=== PATIENT | male | born 1950 | race Two or more races ===

== ENCOUNTER 2017-08-15 04:36 | Emergency (ER) | payer OTHER ==
[~2017-08-15] VITALS: Ht 185.4 cm; Wt 102.5 kg
[2017-08-15] MEDS ORDERED: Oxymetazoline 0.05% Na Spray 30ml NASAL ONE (04:47)
[2017-08-15 04:50] VITALS: BP 163/96
[2017-08-15 05:13] LABS: BASOPHILS % (AUTO) 0.5 % (0.0-2.0); EOSINOPHILS % (AUTO) 3.4 % (0.0-3.0); HEMATOCRIT 34.9 % (42.0-52.0); HEMOGLOBIN 11.7 G/DL (14.2-18.0); LYMPHOCYTES % (AUTO) 30.8 % (20.0-45.0); MEAN CORPUSCULAR VOLUME 86 FL (80-99); MONOCYTES % (AUTO) 5.7 % (1.0-10.0); NEUTROPHILS % (AUTO) 59.6 % (45.0-75.0); PLATELET COUNT 352 K/UL (150-450); RED BLOOD COUNT 4.05 M/UL (4.70-6.10); RED CELL DISTRIBUTION WIDTH 11.7 % (11.6-14.8); WHITE BLOOD COUNT 5.7 K/UL (4.8-10.8)
[2017-08-15 05:24] LABS: ANION GAP 7 mmol/L (5-15); BLOOD UREA NITROGEN 15 mg/dL (7-18); CALCIUM 8.9 MG/DL (8.5-10.1); CARBON DIOXIDE 30 MMOL/L (21-32); CHLORIDE 103 MMOL/L (98-107); CREATININE 1.1 MG/DL (0.55-1.30); POTASSIUM 3.5 MMOL/L (3.5-5.1); SODIUM 140 MMOL/L (136-145)
--- NOTE | 2017-08-15 05:25 | Emergency Room Report ---
History of Present Illness General Chief Complaint: Nosebleed Source: Patient, EMS Present Illness HPI Patient is a 66-year-old male who presented after increased right-sided nasal bleeding the patient recently had similar symptoms on the opposite side. Patient had recent increased cough. He reports taking aspirin daily. He was having prior history of diabetes and high blood pressure. Patient reported having moderate bleeding. He reports several episodes in the last 2 weeks Allergies: Coded Allergies: No Known Allergies (Unverified , 08/15/17) Patient History Past Medical History: see triage record Reviewed Nursing Documentation: PMH: Agreed, PSxH: Agreed Nursing Documentation-PMH Hx Hypertension: Yes Hx Diabetes: Yes Review of Systems All Other Systems: negative except mentioned in HPI Physical Exam Vital Signs Date Time Temp Pulse Resp B/P (MAP) Pulse Ox O2 Delivery O2 Flow Rate FiO2 08/15/17 04:34 97.7 65 18 163/96 98 Room Air Sp02 EP Interpretation: reviewed, normal General Appearance: normal inspection, well appearing, no apparent distress, alert, GCS 15 Head: atraumatic ENT: normal ENT inspection, hearing grossly normal, normal voice, other - right nare large blood clot, mild anterior bleeding noted Neck: normal inspection, full range of motion, supple, no bony tend Respiratory: normal inspection, lungs clear, normal breath sounds, no respiratory distress, no retraction, no wheezing Cardiovascular #1: regular rate, rhythm, no edema Gastrointestinal: normal inspection, normal bowel sounds, non tender, soft, no guarding, no hernia Genitourinary: no CVA tenderness Musculoskeletal: normal inspection, back normal, normal range of motion Neurologic: normal inspection, alert, responsive, speech normal Psychiatric: normal inspection, judgement/insight normal, mood/affect normal Skin: normal inspection, normal color, no rash Medical Decision Making Diagnostic Impression: Primary Impression: Epistaxis ER Course Patient presented for nosebleed. Differential diagnoses included was not limited to anterior epistaxis, posterior epistaxis, coagulopathy, anemia among others.Because of complexity of patient's case laboratory testing and imaging studies were ordered. The patient was noted to have adequate hemoglobin. A Rhino Rocket was placed in the right near and oxymetazoline spray was instilled. The patient was noted to have a scheduled appointment with ENT. The patient is advised to follow up with primary care doctor in 1-2 days. Patient is advised to return if any worsening condition or if any changes in status that are concerning. This report is dictated with [employer] diesel mechanic farm software which may occasionally lead to discrepancies related to use of this software. Labs Test 08/15/17 05:00 White Blood Count 5.7 K/UL (4.8-10.8) Red Blood Count 4.05 M/UL (4.70-6.10) Hemoglobin 11.7 G/DL (14.2-18.0) Hematocrit 34.9 % (42.0-52.0) Mean Corpuscular Volume 86 FL (80-99) Mean Corpuscular Hemoglobin 28.9 PG (27.0-31.0) Mean Corpuscular Hemoglobin Concent 33.5 G/DL (32.0-36.0) Red Cell Distribution Width 11.7 % (11.6-14.8) Platelet Count 352 K/UL (150-450) Mean Platelet Volume 6.2 FL (6.5-10.1) Neutrophils (%) (Auto) 59.6 % (45.0-75.0) Lymphocytes (%) (Auto) 30.8 % (20.0-45.0) Monocytes (%) (Auto) 5.7 % (1.0-10.0) Eosinophils (%) (Auto) 3.4 % (0.0-3.0) Basophils (%) (Auto) 0.5 % (0.0-2.0) Prothrombin Time 9.3 SEC (9.30-11.50) Prothromb Time International Ratio 0.9 (0.9-1.1) Activated Partial Thromboplast Time 24 SEC (23-33) Sodium Level 140 MMOL/L (136-145) Potassium Level 3.5 MMOL/L (3.5-5.1) Chloride Level 103 MMOL/L (98-107) Carbon Dioxide Level 30 MMOL/L (21-32) Anion Gap 7 mmol/L (5-15) Blood Urea Nitrogen 15 mg/dL (7-18) Creatinine 1.1 MG/DL (0.55-1.30) Estimat Glomerular Filtration Rate > 60 mL/min (>60) Glucose Level 218 MG/DL (74-106) Calcium Level 8.9 MG/DL (8.5-10.1) Total Bilirubin 0.4 MG/DL (0.2-1.0) Aspartate Amino Transf (AST/SGOT) 18 U/L (15-37) Alanine Aminotransferase (ALT/SGPT) 22 U/L (12-78) Alkaline Phosphatase 142 U/L (46-116) Total Protein 8.0 G/DL (6.4-8.2) Albumin 3.7 G/DL (3.4-5.0) Globulin 4.3 g/dL Albumin/Globulin Ratio 0.9 (1.0-2.7) Last Vital Signs Date Time Temp Pulse Resp B/P (MAP) Pulse Ox O2 Delivery O2 Flow Rate FiO2 08/15/17 04:50 97.7 65 18 163/96 98 Room Air Status: improved Disposition: HOME, SELF-CARE Condition: Stable Referrals: [facility] (PCP) Ric Diaz Aug 15, 2017 05:25
[2017-08-15 05:27] LABS: INR 0.9 (0.9-1.1)
[2017-08-15 05:29] LABS: ALANINE AMINOTRANSFERASE 22 U/L (12-78); ALBUMIN 3.7 G/DL (3.4-5.0); ALBUMIN/GLOBULIN RATIO 0.9 (1.0-2.7); ALKALINE PHOSPHATASE 142 U/L (46-116); ASPARTATE AMINO TRANSFERASE 18 U/L (15-37); BILIRUBIN,TOTAL 0.4 MG/DL (0.2-1.0)
[2017-08-15] MEDS ORDERED: Sodium Chloride 500ML 250 ML IV ONE (05:30)
[2017-08-15 05:55] VITALS: BP 136/87
[2017-08-15 05:57] VITALS: BP 136/87
[2017-08-16] MEDS ORDERED: METFORMIN HCL500 M1 ORAL (11:21)
[2017-08-16] MEDS ORDERED: METOPROLOL TART25 MG ORAL (11:21)
[2017-08-16] MEDS ORDERED: LOSARTAN POTASS25 MG ORAL (11:23)
[2017-08-16] MEDS ORDERED: AFEDITAB CR30 MG ORAL (11:23)
== END 2017-08-15 05:59 | disposition home or self-care (01) ==
LOC: EDBD 04:36 → EMR 05:03
DX: R04.0 Epistaxis (principal); E11.9 Type 2 diabetes mellitus without complications; I10 Essential (primary) hypertension
CPT/HCPCS: 36415; 80053; 85025; 85610; 85730; 86850; 86900; 86901; 96360; 99284; J7040

== ENCOUNTER 2017-08-16 11:01 | Emergency (ER) | payer OTHER ==
[~2017-08-16] VITALS: Ht 185.4 cm; Wt 102.5 kg
[2017-08-16] MEDS ORDERED: METFORMIN HCL500 M1 ORAL (11:21)
[2017-08-16] MEDS ORDERED: METOPROLOL TART25 MG ORAL (11:21)
[2017-08-16] MEDS ORDERED: LOSARTAN POTASS25 MG ORAL (11:23)
[2017-08-16] MEDS ORDERED: AFEDITAB CR30 MG ORAL (11:23)
[2017-08-16 12:00] VITALS: BP 156/70
[2017-08-16] MEDS ORDERED: Silver Nitrate Stick TOPIC ONE (12:00)
--- NOTE | 2017-08-16 13:18 | Emergency Room Report ---
History of Present Illness General Chief Complaint: General Complaint Source: Patient Present Illness HPI patient is a 66-year-old male who presented after having recent nasal packing. The patient return for removal of packing. The patient denied any bleeding. Patient not been vomiting or having any fever.He denied feeling weak or dizzy Allergies: Coded Allergies: No Known Allergies (Unverified , 08/15/17) Patient History Past Medical History: see triage record Reviewed Nursing Documentation: PMH: Agreed, PSxH: Agreed Nursing Documentation-PMH Past Medical History: No History, Except For Hx Hypertension: Yes Hx Diabetes: Yes Review of Systems All Other Systems: negative except mentioned in HPI Physical Exam Vital Signs Date Time Temp Pulse Resp B/P (MAP) Pulse Ox O2 Delivery O2 Flow Rate FiO2 08/16/17 11:17 98.1 62 18 171/79 97 Room Air General Appearance: well appearing, no apparent distress, alert, GCS 15 Head: normocephalic, atraumatic ENT: hearing grossly normal, normal voice, other - nasal packing in right nare. Neck: full range of motion, supple Respiratory: no respiratory distress, speaking full sentences Musculoskeletal: no calf tenderness Neurologic: normal gait Psychiatric: mood/affect normal Skin: no rash Medical Decision Making Diagnostic Impression: Primary Impression: Encounter for removal of nasal packing ER Course The patient presented for nasal packing removal. Differential diagnosis included was not limited to recurrent bleeding, coagulopathy among others. Patient has a benign exam and does not appear to require any further imaging or laboratory testing at this time. The packing was removed. The patient minimal nasal bleeding after packing was removed and will resolve with direct pressure Last Vital Signs Date Time Temp Pulse Resp B/P (MAP) Pulse Ox O2 Delivery O2 Flow Rate FiO2 08/16/17 12:00 98.2 75 17 156/70 100 Room Air Status: improved Disposition: HOME, SELF-CARE Condition: Stable Referrals: NOT CHOSEN [facility],REFERRING Patient Instructions: Ric Hayward Aug 16, 2017 13:18
== END 2017-08-16 12:00 | disposition home or self-care (01) ==
LOC: EMR 11:48
DX: Z48.00 Encounter for change or removal of nonsurgical wound dressing (principal); E11.9 Type 2 diabetes mellitus without complications; I10 Essential (primary) hypertension
CPT/HCPCS: 99282

== ENCOUNTER 2017-08-22 23:54 | Emergency (ER) | payer OTHER ==
[~2017-08-22] VITALS: Ht 185.4 cm; Wt 103.4 kg
[~2017-08-22 23:54] MED LIST: AFEDITAB CR30 MG ORAL; LOSARTAN POTASS25 MG ORAL; METFORMIN HCL500 M1 ORAL; METOPROLOL TART25 MG ORAL
[2017-08-23 00:13] VITALS: BP 172/84
[2017-08-23] MEDS ORDERED: DETROL2 MG ORAL (00:16)
[2017-08-23] MEDS ORDERED: LOSARTAN POTASS50 MG ORAL (00:16)
[2017-08-23] MEDS ORDERED: ASPIRIN81 MG ORAL (00:16)
[2017-08-23] MEDS ORDERED: TAMSULOSIN HCL0.4 MG ORAL (00:16)
[2017-08-23] MEDS ORDERED: TRAZODONE HCL150 MG ORAL (00:16)
[2017-08-23] MEDS ORDERED: CARVEDILOL25 MG ORAL (00:16)
[2017-08-23] MEDS ORDERED: GLIPIZIDE5 MG ORAL (00:16)
[2017-08-23] MEDS ORDERED: ADALAT20 MG ORAL (00:16)
[2017-08-23] MEDS ORDERED: METFORMIN HCL500 M1 ORAL (00:16)
--- NOTE | 2017-08-23 00:21 | Emergency Room Report ---
History of Present Illness General Chief Complaint: Nosebleed Source: Patient Present Illness HPI 67-year-old male, on aspirin, presenting with epistaxis for 20 minutes. Patient was just seen in the emergency room 2 days ago, had nasal packing for epistaxis which was then removed the next day. Patient states that now he is bleeding from the right nare, 20 minutes, no shortness of breath, no choking episodes Allergies: Coded Allergies: No Known Allergies (Unverified , 08/15/17) Patient History Past Medical History: see triage record Past Surgical History: none Pertinent Family History: none Reviewed Nursing Documentation: PMH: Agreed, PSxH: Agreed Nursing Documentation-PMH Hx Hypertension: Yes Hx Diabetes: Yes Review of Systems All Other Systems: negative except mentioned in HPI Physical Exam Vital Signs Date Time Temp Pulse Resp B/P (MAP) Pulse Ox O2 Delivery O2 Flow Rate FiO2 08/23/17 00:00 97.5 68 16 171/87 95 Room Air Sp02 EP Interpretation: reviewed, normal General Appearance: normal inspection, well appearing, no apparent distress, alert, GCS 15, non-toxic Head: normocephalic, atraumatic Eyes: bilateral eye normal inspection, bilateral eye PERRL, bilateral eye EOMI ENT: other - Bilateral naris with dried blood, currently bleeding able to be stopped with application of pressure, no blood in posterior pharynx Neck: normal inspection, full range of motion, supple Respiratory: normal inspection, lungs clear, normal breath sounds, no respiratory distress, no retraction, no wheezing, speaking full sentences, chest symmetrical Cardiovascular #1: normal inspection, regular rate, rhythm, normal capillary refill Cardiovascular #2: 2+ radial (R), 2+ radial (L) Gastrointestinal: normal inspection, non tender, soft, non-distended, no guarding Musculoskeletal: normal inspection, back normal, normal range of motion, non- tender Neurologic: normal inspection, alert, oriented x3, responsive, motor strength/ tone normal, sensory intact, normal gait, speech normal Psychiatric: normal inspection, judgement/insight normal, memory normal Skin: normal inspection, normal color, no rash, warm/dry, well hydrated, normal turgor Medical Decision Making Diagnostic Impression: Primary Impression: Epistaxis ER Course 67-year-old male with epistaxis DDX: Likely anterior epistaxis Plan: Apply pressure with epistaxis clamp, consider nasal packing ER course: Patient has remained stable during ED stay. clamp placed on bridge of nose, which is given enough pressure to stop bleeding removed, bleeding has stopped Disposition: Patient is to be discharged to home. Followup with ENT in one week Please note that this Emergency Department Report was dictated using [facility] immun[employer] technology software, occasionally this can lead to erroneous entry secondary to interpretation by the dictation equipment Last Vital Signs Date Time Temp Pulse Resp B/P (MAP) Pulse Ox O2 Delivery O2 Flow Rate FiO2 08/23/17 00:13 97.5 70 16 172/84 95 Room Air Disposition: HOME, SELF-CARE Condition: Improved Mikala Land M.D. Aug 23, 2017 00:21
[2017-08-23 01:06] VITALS: BP 147/84
[2017-08-23 01:31] VITALS: BP 147/84
== END 2017-08-23 01:32 | disposition home or self-care (01) ==
LOC: EMR 08-23 00:15
DX: R04.0 Epistaxis (principal); I10 Essential (primary) hypertension; E11.9 Type 2 diabetes mellitus without complications
CPT/HCPCS: 99283

== ENCOUNTER 2017-09-03 07:29 | Emergency (ER) | payer OTHER ==
[~2017-09-03] VITALS: Ht 185.4 cm; Wt 104.3 kg
[~2017-09-03 07:29] MED LIST changes: +ADALAT20 MG ORAL; +ASPIRIN81 MG ORAL; +CARVEDILOL25 MG ORAL; +DETROL2 MG ORAL; +GLIPIZIDE5 MG ORAL; +LOSARTAN POTASS50 MG ORAL; +TAMSULOSIN HCL0.4 MG ORAL; +TRAZODONE HCL150 MG ORAL
[2017-09-03] MEDS ORDERED: Lidocaine 1% 10mg/ml/Epi 0.005mg/ml 30ml vial INJ ONE (07:50)
[2017-09-03 08:28] VITALS: BP 158/88
--- NOTE | 2017-09-03 09:08 | Emergency Room Report ---
History of Present Illness General Chief Complaint: Nosebleed Source: Patient Present Illness HPI Patient present with complaints of left-sided nosebleed Patient had this on 2 different episodes where he presents to our ER On one episode patient required packing A second episode pressure resolved the bleeding Patient reports bleeding started this morning after several hours of applying pressure was unable to get control and presents to the ER Patient was previously taking aspirin however has not been taking that for the last several days Denies any headache or visual changes denies any chest pain or shortness of breath Denies any trauma Patient reports that he is seeing a specialist on Monday Allergies: Coded Allergies: No Known Allergies (Unverified , 08/15/17) Patient History Past Medical History: see triage record Pertinent Family History: none Reviewed Nursing Documentation: PMH: Agreed, PSxH: Agreed Nursing Documentation-PMH Hx Hypertension: Yes Hx Diabetes: Yes Review of Systems All Other Systems: negative except mentioned in HPI Physical Exam Vital Signs Date Time Temp Pulse Resp B/P (MAP) Pulse Ox O2 Delivery O2 Flow Rate FiO2 09/03/17 07:30 98.1 75 18 169/90 98 Room Air Sp02 EP Interpretation: reviewed, normal General Appearance: well appearing, no apparent distress Head: normocephalic, atraumatic Eyes: bilateral eye PERRL, bilateral eye EOMI ENT: other - Active oozing of blood from the left nasal manner, appears to be from anterior aspect, no obvious pulsatile hemorrhage Neck: full range of motion, supple Respiratory: lungs clear, normal breath sounds Cardiovascular #1: regular rate, rhythm, no edema Gastrointestinal: non tender, soft Musculoskeletal: normal inspection Neurologic: alert, oriented x3 Skin: normal color, no rash Lymphatic: no adenopathy Medical Decision Making Diagnostic Impression: Primary Impression: Epistaxis ER Course Initially with pressure patient was reevaluated And continues to have epistaxis therefore packing was required Patient had 7.5 cm packing applied Tolerated the procedure well in the usual fashion Balloons were inflated patient was observed after remains hemodynamically stable No signs of any active bleeding from the back of the throat patient has followup on Monday with ENT specialist was placed on antibiotics and will have further intervention at that time Last Vital Signs Date Time Temp Pulse Resp B/P (MAP) Pulse Ox O2 Delivery O2 Flow Rate FiO2 09/03/17 08:28 98.1 84 16 158/88 99 Room Air Status: improved Disposition: HOME, SELF-CARE Condition: Improved Referrals: [facility] (PCP) Additional Instructions: Patient is provided with the discharge instructions notified to follow up with primary doctor in the next 2-3 days otherwise return to the er with any worsening symptoms. Please note that this report is being documented using [employer] technology. This can lead to erroneous entry secondary to incorrect interpretation by the dictating instrument. JANNIE LOYOLA D.O. Sep 03, 2017 09:08
[2017-09-03] MEDS ORDERED: AUGMENTIN 875-1 EAC1 ORAL (09:09)
[2017-09-03 09:20] VITALS: BP 158/88
== END 2017-09-03 09:20 | disposition home or self-care (01) ==
LOC: EMR 08:03
DX: R04.0 Epistaxis (principal); I10 Essential (primary) hypertension; E11.9 Type 2 diabetes mellitus without complications
CPT/HCPCS: 30901; 99284